=== PATIENT | female | born 1990 ===

== ENCOUNTER 2024-07-15 14:05 | Outpatient (REF) | payer OTHER, SELFPAY ==
[2024-07-15 16:03] LABS: Prothrombin Time 10.4 sec (9.1-11.1)
[2024-07-15 16:15] LABS: ALT 15 U/L (14-59); AST 17 U/L (15-37); Albumin 3.8 g/dL (3.4-5.0); Alkaline Phosphatase 56 U/L (46-116); Anion Gap 7.3 mmol/L (3-11); BUN 15 mg/dL (7-18); Bilirubin, Total 0.5 mg/dL (0.2-1.0); CO2 27.7 mmol/L (21.0-32.0); CREATININE 0.7 mg/dL (0.55-1.02); Calcium 9.2 mg/dL (8.5-10.1); Calculated LDL 87 mg/dL (<100); Chloride 105 mmol/L (98-107); Cholesterol 163 mg/dL (<200); Estimated GFR 117.04 (mL/min/1.73m2); Glucose 90 mg/dL (74-106); HDL Cholesterol 69 mg/dL (>or=50); Potassium 4.3 mmol/L (3.5-5.1); Sodium 140 mmol/L (136-145); TSH 1.15 uIU/mL (0.36-3.74); Total Protein 6.5 g/dL (6.4-8.2); Triglyceride 39 mg/dL (<150)
[2024-07-15 16:40] LABS: FREE T4 1.04 ng/dL (0.76-1.46)
[2024-07-15 22:07] LABS: T3,Free 4.1 pg/mL (2.8-5.3)
[2024-07-25 17:35] LABS: AM Cortisol 11 mcg/dL (5-25); Cortisol, Free 0.434 mcg/dL
== END 2024-07-15 14:06 | disposition home or self-care (01) ==
LOC: NCHCN 14:05
PROVIDERS: Visit Provider Physician Assistant
DX: R79.89 Other specified abnormal findings of blood chemistry (principal); G93.32 Myalgic encephalomyelitis/chronic fatigue syndrome; F41.1 Generalized anxiety disorder; D68.51 Activated protein C resistance; Z13.220 Encounter for screening for lipoid disorders
CPT/HCPCS: 80053; 80061; 82530; 82533; 84439; 84443; 84481; 85610